=== PATIENT | male | born 1960 | race Two or more races ===

== ENCOUNTER 2022-07-11 14:58 | Emergency (ER) | payer MEDICAID ==
[~2022-07-11] VITALS: Ht 167.6 cm; Wt 74.8 kg
--- NOTE | 2022-07-11 15:10 | NUR ---
I feel like my Appendix is about to burst. Bad pain in abdomen.
[2022-07-11] MEDS ORDERED: MORPHINE SULFATE INJ 2 MG/ML DISP.SYRIN ONE (15:48)
[2022-07-11] MEDS ORDERED: ONDANSETRON HCL/PF 4 MG/2 ML VIAL ONE (15:48)
[2022-07-11 15:50] LABS: EOSINOPHILS % (AUTO) 1.5 % (0.0-6.0); MONOCYTES # (AUTO) 0.7 K/uL (0.1-1.30); NEUTROPHILS # (AUTO) 6.3 K/uL (1.8-8.9)
--- NOTE | 2022-07-11 15:55 | NUR ---
IV STARTED ON RIGHT AC 20G
[2022-07-11 15:57] LABS: BASOPHILS % (AUTO) 0.4 % (0.0-2.0); HEMATOCRIT 56 % (39-51); HEMOGLOBIN 17.7 g/dL (13.5-17.5); LYMPHOCYTES # (AUTO) 1.5 K/uL (0.8-4.8); LYMPHOCYTES % (AUTO) 17.1 % (20.0-44.0); MEAN CORPUSCULAR HGB CONC 32 g/dl (31.0-36.0); MEAN CORPUSCULAR VOLUME 85 fL (80-96); MONOCYTES % (AUTO) 8.6 % (2.0-12.0); NEUTROPHILS % (AUTO) 72.4 % (43.0-81.0); PLATELET COUNT (AUTO) 244 K/uL (150-450); RED BLOOD CELL COUNT(AUTO) 6.57 MIL/uL (4.5-6.0); WHITE BLOOD COUNT (AUTO) 8.7 K/uL (4.3-11.0)
--- NOTE | 2022-07-11 15:57 | NUR ---
PATIENT REFUSED MORPHINE.
[2022-07-11] MEDS ORDERED: PIPERACILLIN /TAZOBACTAM 3.375 G in IV D5W 50 ML IV ONE (16:00)
[2022-07-11] MEDS ORDERED: ONDANSETRON HCL/PF - ER 4 MG/2 ML VIAL IV ONE (16:00)
[2022-07-11] MEDS ORDERED: IV LR 1000 ML 1,000 ML BAG IV ONE (16:00)
[2022-07-11] MEDS ORDERED: MORPHINE SULFATE INJ 2 MG/ML DISP.SYRIN IV ONE (16:00)
--- NOTE | 2022-07-11 16:01 | NUR ---
LR ADMINISTERED 1601 IV STOP TIME 1801
[2022-07-11 17:51] LABS: CALCIUM, SERUM 9.3 mg/dL (8.5-10.1); POTASSIUM 4.6 mmol/L (3.5-5.1)
[2022-07-11 17:52] LABS: ALBUMIN 3.5 g/dL (3.4-5.0); BILIRUBIN,TOTAL 1.6 mg/dL (0.2-1.0); CREATININE 1.4 mg/dL (0.6-1.3); TOTAL PROTEIN, SERUM 7.4 g/dL (6.4-8.2)
[2022-07-11] MEDS ORDERED: IV NS 0.9% 250 ML IV ONE (18:02)
[2022-07-11] MEDS ORDERED: CT SWABBABLE VALVE TRANS SET 1 EA INFUS.SET MC ONE (18:02)
[2022-07-11] MEDS ORDERED: IOHEXOL-300 100 ML VIAL IV ONE (18:02)
[2022-07-11 18:54] LABS: BILIRUBIN,DIRECT 0.4 mg/dL (0.0-0.2)
[2022-07-11 19:36] LABS: BILIRUBIN,URINE NEGATIVE (NEGATIVE); COLOR,URINE YELLOW (YELLOW); LEUKOCYTE ESTERASE ,URINE NEGATIVE (NEGATIVE); NITRITE, URINE NEGATIVE (NEGATIVE); PH,URINE 5.5 (5.0-8.0); PROTEIN,URINE 1+ mg/dl (NEGATIVE); UGLUCOSE NEGATIVE (NEGATIVE); UROBILINOGEN,URINE 0.2 EU/dL (0.2)
[2022-07-11] MEDS ORDERED: ONDA4TAB11 PO (20:09)
[2022-07-11] MEDS ORDERED: AMOX-430 PO (20:09)
[2022-07-11] MEDS ORDERED: AMOX/CLAVULANATE 875 MG TABLET ONE (20:16)
[2022-07-11 20:25] VITALS: BP 142/75
--- NOTE | 2022-07-11 20:25 | NUR ---
Patient discharged to home in stable condition. Written and verbal after care instructions given. Patient verbalizes understanding of instruction.IV removed. Catheter intact and site benign. Pressure and 4x4 applied to site. No bleeding noted.
[2022-07-11] MEDS ORDERED: AMOX/CLAVULANATE 875 MG TABLET PO ONE (20:30)
[2022-07-11 20:35] LABS: BACTERIA,URINE None seen /HPF (None Seen); MUCUS,URINE Few /LPF (None Seen); RBC,URINE 0-2 /HPF (0-2); SQUAMOUS EPITHELIAL CELL,UR None Seen /HPF (None Seen); WBC,URINE 0-2 /HPF (0-3)
--- NOTE | 2022-07-11 20:44 | NUR ---
LACTIC 2.5 REPORTED BY LAB AFTER DISCHARGE. DR. AHN NOTIFIED.
== END 2022-07-11 20:45 | disposition home or self-care (01) ==
LOC: ER 15:06
DX: K52.9 Noninfective gastroenteritis and colitis, unspecified (principal); R10.31 Right lower quadrant pain; Z60.2 Problems related to living alone; Z79.899 Other long term (current) drug therapy
CPT/HCPCS: 99285; 74177; 96374; 96375; 85025; 80048; 87040 ×2; 83605; 83690; 80076; 81001; 36415; J2405 ×2; J2543; J7060; J7120 ×2; J7050; Q9967; J2270

== ENCOUNTER 2022-07-25 13:50 | Inpatient (IN) | payer MEDICAID ==
[~2022-07-25] VITALS: Ht 175.3 cm; Wt 81.2 kg
[~2022-07-25 13:50] MED LIST: AMOX-430 PO; ONDA4TAB11 PO
--- NOTE | 2022-07-25 14:05 | NUR ---
WORSENING SOB, BLE EDEMA WORST X 2 DAYS.
--- NOTE | 2022-07-25 15:00 | NUR ---
IV LINE RIGHT AC 20
--- NOTE | 2022-07-25 15:14 | NUR ---
BLOOD SAMPLE TAKEN SENT TO LAB
[2022-07-25 15:24] LABS: BASOPHILS # (AUTO) 0.1 K/uL (0.0-0.2); BASOPHILS % (AUTO) 0.8 % (0.0-2.0); EOSINOPHILS % (AUTO) 1.2 % (0.0-6.0); HEMATOCRIT 57 % (39-51); HEMOGLOBIN 17.8 g/dL (13.5-17.5); LYMPHOCYTES % (AUTO) 13.3 % (20.0-44.0); MEAN CORPUSCULAR HGB CONC 32 g/dl (31.0-36.0); MEAN CORPUSCULAR VOLUME 84 fL (80-96); MONOCYTES # (AUTO) 0.7 K/uL (0.1-1.30); MONOCYTES % (AUTO) 8.7 % (2.0-12.0); NEUTROPHILS # (AUTO) 5.9 K/uL (1.8-8.9); PLATELET COUNT (AUTO) 187 K/uL (150-450); RED BLOOD CELL COUNT(AUTO) 6.72 MIL/uL (4.5-6.0); WHITE BLOOD COUNT (AUTO) 7.7 K/uL (4.3-11.0)
--- NOTE | 2022-07-25 15:42 | NUR ---
PATIENT REFUSED TO HAVE HIS PULSE OX SENSOR ON. EXPLAINED THE BENEFITS OF HAVING IT ON SPCIALLY HE IS HAVING SHORTNESS OF BREATH BUT PT. STILL REFUSED. MADE AWARE
[2022-07-25 15:51] LABS: ALANINE AMINOTRANSFERASE 296 U/L (12-78); ALBUMIN 3.3 g/dL (3.4-5.0); ALKALINE PHOSPHATASE 104 U/L (46-116); ASPARTATE AMINOTRANSFERASE 53 U/L (15-37); BILIRUBIN,DIRECT 0.5 mg/dL (0.0-0.2); BILIRUBIN,TOTAL 1.4 mg/dL (0.2-1.0); CALCIUM, SERUM 9.3 mg/dL (8.5-10.1); CARBON DIOXIDE 24 mmol/L (21-32); CHLORIDE 100 mmol/L (98-107); CREATININE 1.6 mg/dL (0.6-1.3); GLUCOSE 102 mg/dL (74-106); POTASSIUM 5.2 mmol/L (3.5-5.1); SODIUM SERUM 134 mmol/L (136-145); TOTAL PROTEIN, SERUM 7.5 g/dL (6.4-8.2); UREA NITROGEN, BLOOD 20 mg/dL (7-18)
--- NOTE | 2022-07-25 15:57 | NUR ---
COVID SWAB TAKEN SENT TO LAB
[2022-07-25] MEDS ORDERED: FUROSEMIDE 20 MG/2 ML VIAL IV ONE (16:30)
[2022-07-25] MEDS ORDERED: FUROSEMIDE 20 MG/2 ML VIAL ONE (16:31)
[2022-07-25 17:43] LABS: BAND % (MANUAL) 1 % (0.0-5.0); LYMPHOCYTES % (MANUAL) 18 % (16-48); MONOCYTES % (MANUAL) 7 % (0-11.0); NEUTROPHILS % (MANUAL) 74 (42-76)
--- NOTE | 2022-07-25 18:51 | NUR ---
GOT BED 321-2 AFTER CHANGE OF SHIFT. ADMITTING INFORMED.
--- NOTE | 2022-07-25 20:30 | NUR ---
WINE AND SPIRITS CLERK NOTE PATIENT ARRIVED TO UNIT VIA CLAY FISCHER. A/OX4. NO S/S OF DISTRESS, BREATHING WITHOUT DIFFICULTY ON ROOM AIR. RAC #20 INTACT AND PATENT. VS STABLE AND WNL. PATIENT ORIENTED TO THE UNIT. PATIENT GIVEN CALL BOWDEN AND INSTRUCTED ON ITS USE. TELE MONITOR APPLIED TO PATIENT, AND EDUCATED ON ITS ROLE IN TREATMENT. PATIENT'S BELONGINGS ACCOUNTED FOR, LOGGED INTO SHEET, AND PLACED IN CHART. SAFETY MEASURES IN PLACE: BED LOCKED AND AT LOWEST POSITION, RAILS UP X2, CALL BOWDEN WITHIN REACH. WILL CONTINUE TO MONITOR PATIENT.
[2022-07-25] MEDS ORDERED: Z GUARD REMEDY 4 OZ OINT TP PRN (21:00)
[2022-07-25] MEDS ORDERED: MAG HYDROX/AL HYDROX/SIMETH 30 ML UDC PO PRN (21:00)
[2022-07-25] MEDS ORDERED: MORPHINE SULFATE INJ 2 MG/ML DISP.SYRIN IV PRN (21:00)
[2022-07-25] MEDS ORDERED: SENNOSIDES 8.6 MG TABLET PO PRN (21:00)
[2022-07-25] MEDS ORDERED: MAGNESIUM HYDROXIDE 30 ML UDC PO PRN (21:00)
[2022-07-25] MEDS ORDERED: ACETAMINOPHEN 325 MG TABLET PO PRN (21:00)
[2022-07-25] MEDS ORDERED: HYDROCODONE/APAP 5/325MG TABLET PO PRN (21:00)
--- NOTE | 2022-07-25 21:11 | NUR ---
RNJAMES STATED THAT PT JUST GOT ADMITTED AND IS IRRITATED. PT WISHES TO REST. RN ASKED FOR EXAM TO BE DONE COMBUSTION ENGINEER. PT WILL BE NPO.
[2022-07-25] MEDS: ZOLPIDEM TARTRATE 5 MG TABLET PO PRN (21:51)
[2022-07-25 22:26] VITALS: BP 102/80; TEMP 98.7
[2022-07-26] VITALS: BP 134/96; TEMP 97.6
[2022-07-26 04:00] VITALS: BP 142/85; TEMP 97.6
[2022-07-26 06:06] LABS: CALCIUM, SERUM 9.4 mg/dL (8.5-10.1); CREATININE 1.7 mg/dL (0.6-1.3); MAGNESIUM 2.2 mg/dL (1.8-2.4)
[2022-07-26 06:21] LABS: THYROID STIMULATING HORMONE 11.907 uIU/mL (0.358-3.74)
--- NOTE | 2022-07-26 06:21 | NUR ---
RN CLOSING NOTE PATIENT ASLEEP IN BED. A/OX4. NO S/S OF DISTRESS, BREATHING WITHOUT DIFFICULTY ON ROOM AIR. LAC #20 SL INTACT AND PATENT. SAFETY MEASURES IN PLACE: BED LOCKED AND AT LOWEST POSITION, RAILS UP X2, CALL BOWDEN WITHIN REACH. WILL ENDORSE TO NEXT SHIFT FOR RUSLAN. Addendum: 07/26/22 at 0624 by JAMES TRAN RN [place] [id number]
[2022-07-26 06:25] LABS: BASOPHILS % (AUTO) 0.6 % (0.0-2.0); EOSINOPHILS % (AUTO) 0.7 % (0.0-6.0); HEMATOCRIT 59 % (39-51); HEMOGLOBIN 18.6 g/dL (13.5-17.5); LYMPHOCYTES # (AUTO) 1.2 K/uL (0.8-4.8); MEAN CORPUSCULAR HGB CONC 31 g/dl (31.0-36.0); MEAN CORPUSCULAR VOLUME 84 fL (80-96); MONOCYTES # (AUTO) 0.6 K/uL (0.1-1.30); MONOCYTES % (AUTO) 8.5 % (2.0-12.0); NEUTROPHILS # (AUTO) 5.1 K/uL (1.8-8.9); NEUTROPHILS % (AUTO) 73.2 % (43.0-81.0); PLATELET COUNT (AUTO) 178 K/uL (150-450); RED BLOOD CELL COUNT(AUTO) 7.04 MIL/uL (4.5-6.0); WHITE BLOOD COUNT (AUTO) 6.9 K/uL (4.3-11.0)
--- NOTE | 2022-07-26 07:00 | NUR ---
RN OPENING NOTE RECEIVED PATIENT AWAKE. A/OX4. NO S/S OF DISTRESS, BREATHING WITHOUT DIFFICULTY ON ROOM AIR. LAC #20 SL INTACT AND PATENT. PATIENT ASKED FOR FOOD, HOWEVER WITH NPO STATUS PER ENDORSED BY FORMULA WEIGHER NURSE, SAFETY MEASURES IN PLACE: BED LOCKED AND AT LOWEST POSITION, RAILS UP X2, CALL BOWDEN WITHIN REACH. WILL CONTINUE TO MONITOR
[2022-07-26 08:14] VITALS: BP 153/110; TEMP 97.9
[2022-07-26] MEDS: FUROSEMIDE 40 MG/4 ML VIAL IV SCH (08:58)
[2022-07-26] MEDS: ASPIRIN 81 MG TAB.CHEW PO SCH (08:58)
[2022-07-26] MEDS: DOCUSATE SODIUM LIQ 100 MG/10 ML UDC NG SCH (08:58)
[2022-07-26] MEDS: PANTOPRAZOLE 40 MG TABLET.DR PO SCH (08:59)
--- NOTE | 2022-07-26 09:06 | NUR ---
WOUND CARE CONSULT: PT PRESENTS WITH COOL AND SWOLLEN LOWER LEGS WITH PURPLISH DISCOLORATION TO KNEES AND FEET. RN TO DISCUSS WITH PMD. PT IS AMBULATORY AND CONTINENT. WILL SEE PRN.
[2022-07-26] MEDS ORDERED: CLONIDINE HCL 0.1 MG TABLET PO PRN (09:30)
[2022-07-26] MEDS ORDERED: hydrALAZINE HCL IV 20 MG VIAL IV PRN (09:30)
[2022-07-26 10:11] LABS: LYMPHOCYTES % (MANUAL) 18 % (16-48); MONOCYTES % (MANUAL) 8 % (0-11.0); NEUTROPHILS % (MANUAL) 74 (42-76)
--- NOTE | 2022-07-26 14:43 | NUR ---
SW consult was requested for possible homelessness. Patient was to the hospital by a friend due to CHF. Patient presented alert and oriented x4 but agitated. He currently resides is his RV that he ramires in different places. He works as a mancia. 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 DC Plan: Pt would want to return back to his RV.
--- NOTE | 2022-07-26 15:45 | NUR ---
Clean catch urine collected for urinalysis profile. Lab informed for picking tech
[2022-07-26 17:09] LABS: CREATININE, URINE < 13.0 MG/DL (30.0-125.0); URINE SODIUM, RANDOM 82 mmol/l (40-220)
--- NOTE | 2022-07-26 19:30 | NUR ---
CREDIT REVIEW ANALYST OPENING NOTES PATIENT AWAKE IN BED. VISITOR AT BEDSIDE. A/O X 4. ABLE TO MAKE NEEDS KNOWN. PATIENT HAS MOTTLED SKIN. NO S/S OF DISTRESS. ON AND OFF WITH 3L OXYGEN VIA NC, PATIENT ALWAYS REMOVES HIS OXYGEN. IV ACCESS LAC #20 SL INTACT AND PATENT. SAFETY MEASURES IN PLACE WITH BED LOCKED AND AT LOWEST POSITION, SIDE RAILS UP X 2, CALL BOWDEN AND TRAY WITHIN REACH. WILL CONTINUE WITH THE PLAN OF CARE.
--- NOTE | 2022-07-26 19:37 | NUR ---
RN CLOSING NOTE PATIENT AWAKE A/OX4. NO S/S OF DISTRESS, BREATHING WITHOUT DIFFICULTY ON ROOM AIR. LAC #20 SL INTACT AND PATENT. SAFETY MEASURES IN PLACE: BED LOCKED AND AT LOWEST POSITION, RAILS UP X2, CALL BOWDEN WITHIN REACH. WILL ENDORSE TO NEXT SHIFT FOR RUSLAN.
--- NOTE | 2022-07-26 20:10 | NUR ---
RN NOTES RT WAS CALLED STAT BECAUSE SOME PARTS OF PATIENT'S BODY IS CYANOTIC AND COLD (HANDS, LEGS, SOME PARTS OF THE FACE AND EARS). CHECKED THE O2 SATURATION AND IT'S 70'S TO 80'S. GAVE THE PATIENT A SIMPLE MASK TO INCREASE OXYGEN SATURATION LEVEL BUT THE PATIENT REFUSED. PATIENT IS AGITATED AND UNCOOPERATIVE. OXYGEN SAT IMPROVED WITH 7L OXYGEN VIA NC THEN BACK TO 3L. WILL CONTINUE TO MONITOR THE PATIENT.
[2022-07-26] MEDS: ZOLPIDEM TARTRATE 5 MG TABLET PO PRN (20:55)
--- NOTE | 2022-07-26 20:55 | NUR ---
RN NOTES- CHADIEN GIVEN PRN PATIENT REQUESTED FOR CHADIEN FOR SLEEP. V/S TAKEN BEFORE ADMINISTERING THE MEDICATION BP 142/90, RR-18, HR-126 TEMP 98.0. WILL CONTINUE TO MONITOR THE PATIENT.
--- NOTE | 2022-07-26 20:55 | NUR ---
RN NOTES-AMBIEN GIVEN PRN PATIENT REQUESTED AMBIEN FOR SLEEP. V/S TAKEN 142/90 HR-126 RR-18, O2 SAT 96%. NO DISTRESS NOTED.
--- NOTE | 2022-07-26 22:31 | NUR ---
RN NOTES- CALLED RURAL ROUTE CARRIER PATIENT'S HR IS 200'S IN THE TELE MONITOR. O2 SAT WAS AROUND 60'S TO 70'S. PATIENT WAS CYANOTIC AND HAVING SOB. BS LEVEL CHECKED 115. RURAL ROUTE CARRIER CAME AND DR. NOEL. NGUYEN ORDERED EKG STAT. PATIENT RECEIVED ADENOSINE 6MG BY RURAL ROUTE CARRIER. BP LEVEL 158/101 HR 137 POST ADENOSINE ADMINISTRATION. ORDERED FOR TRANSFER.
--- NOTE | 2022-07-26 23:01 | NUR ---
RN NOTES- PATIENT TRANSFERRED TO ICU OVERFLOW 108
[2022-07-26 23:04] LABS: BILIRUBIN,URINE NEGATIVE (NEGATIVE); COLOR,URINE YELLOW (YELLOW); LEUKOCYTE ESTERASE ,URINE 1+ (NEGATIVE); NITRITE, URINE NEGATIVE (NEGATIVE); PROTEIN,URINE 1+ mg/dl (NEGATIVE); UGLUCOSE NEGATIVE (NEGATIVE)
--- NOTE | 2022-07-26 23:17 | NUR ---
RT NOTE RT called to bedside via Rapid Response at [facility] rm 321-2. Stat ekg taken. Pt transferred to [facility] rm 108. Pt placed on bipap on noted settings per WEB OFFSET PRESS FEEDER orders. Alarms are set and audible. Bipap plugged into red outlet. Ambu bag at bedside. ABG to be taken within 1 hr of bipap. Addendum: 07/26/22 at 2321 by YESSICA WATSON RT Amended: Links added.
--- NOTE | 2022-07-26 23:20 | NUR ---
ICU OVERFLOW OPENING NOTES Received pts from [facility] room 321 -2 s/p Rapid response ,Pts is awake alert no sob no distress noted , dog catcher barbara at bedside with order pts to put on bipap settings 15/5 rate 14 fioo2 35% , saturation of 80S unable to get good reading D/t pts skin cold and clammy mottled skin , chest xray abg and ekg (sinus tach), all needs attended TOO,TRIED TO INSERT IV LINE UNABLE TO PTS IS HARDSTICK .REFEERED TO NURSE. will continue to monitor pts .pts still Sinus tach 130 at this time.
[2022-07-26 23:25] LABS: BACTERIA,URINE None seen /HPF (None Seen); SQUAMOUS EPITHELIAL CELL,UR None Seen /HPF (None Seen); WBC,URINE 0-2 /HPF (0-3)
[2022-07-26 23:26] LABS: MUCUS,URINE Few /LPF (None Seen)
[2022-07-26] MEDS: ONDANSETRON HCL/PF 4 MG/2 ML VIAL IVP PRN (23:29)
[2022-07-26] MEDS ORDERED: CEFEPIME 1 GM in IV D5W 50 ML IV SCH (23:30)
[2022-07-26 23:41] LABS: EOSINOPHIL,URINE None Seen
[2022-07-27] VITALS (19 sets, daily range): BP systolic 114–163; BP diastolic 78–119; TEMP 97.1–100.5
[2022-07-27] MEDS ORDERED: CEFEPIME 1 GM in IV D5W 50 ML IV ONE ×2
--- NOTE | 2022-07-27 | NUR ---
ICU NOTES MONTERROSO CATHETER INSERTED ORDERED DRAINING WITH YELLOWISH URINE OUTPUT.
[2022-07-27 00:13] LABS: ABG BASE EXCESS -4.3 mmol/L; ABG PCO2 31.6 mmHg (35.0-45.0); ABG PH 7.397 (7.350-7.450); ABG PO2 500.7 mmHg (75.0-100.0); COHb 0.3 % (0.5-1.5); MetHb 0.9 % (0.0-1.5); O2Hb 98.6 % (94.0-97.0); SITE, ABG Right Radial; VENT MODE, BG ST 15/5 RR14 100%
--- NOTE | 2022-07-27 00:30 | NUR ---
icu overflow notes Abg result 500 PO2 RELAYED TO FEDERAL AGENT ROSANGELA WITH ORDER TO PUT PTS ON NASAL CANNULA AT 4 LITERS REMOVED THE BIPAP , RT AT BEDSIDE , PLACE PTS TO NC AT 4 LITERS AT 80 SATURATION. AND REPEAT ABG AGAIN., AT 0030 HRS FEDERAL AGENT ROSANGELA AT BEDSIDE S/E THE PTS WITH ORDER TO GIVE LASIX 40MGX1 IV MORHINE 2MG IV GIVEN ORDERED.WILL CONTINUE TO MONITOR PTS.
[2022-07-27] MEDS ORDERED: CEFEPIME 1 GM VIAL ONE (00:52)
[2022-07-27] MEDS ORDERED: FUROSEMIDE 40 MG/4 ML VIAL IV ONE (01:00)
[2022-07-27] MEDS ORDERED: ALBUTEROL FS 2.5 MG/3 ML VIAL.NEB NEB PRN (02:00)
--- NOTE | 2022-07-27 02:09 | NUR ---
ICU NOTES PTS RESTLESS AND AGITATION ROSANGELA WITH ORDER ATIVAN 1 MG IV X 1 TIME ORDER NOTED AND CARRIED OUT.
[2022-07-27 02:24] LABS: ABG BASE EXCESS -4.6 mmol/L; ABG PCO2 34.5 mmHg (35.0-45.0); ABG PO2 58.7 mmHg (75.0-100.0); COHb 0.3 % (0.5-1.5); MetHb 0.6 % (0.0-1.5); O2Hb 87.8 % (94.0-97.0); SITE, ABG Right Radial; VENT MODE, BG Room Air
[2022-07-27] MEDS ORDERED: LORAZEPAM INJ 2 MG/ML VIAL IV ONE (02:30)
--- NOTE | 2022-07-27 02:35 | NUR ---
auricular acupuncturist notes MIDLINE ON RIGHT UPPER ARM INSERTED BY LUCY MOORE AND PATENT PTS WAS PUT BACK ON BIPAP15/5 ORDERED.PTS WAS ORDERED ON BILATERAL SOFT WRIST D/T PTS PULLING OUT INVASIVE TUBING. WILL CONTINUE TO MONITOR PTS.
[2022-07-27 06:22] LABS: BASOPHILS % (AUTO) 0.4 % (0.0-2.0); EOSINOPHILS % (AUTO) 0.1 % (0.0-6.0); HEMATOCRIT 53 % (39-51); HEMOGLOBIN 17.3 g/dL (13.5-17.5); LYMPHOCYTES # (AUTO) 1.2 K/uL (0.8-4.8); LYMPHOCYTES % (AUTO) 13.7 % (20.0-44.0); MEAN CORPUSCULAR HGB CONC 33 g/dl (31.0-36.0); MEAN CORPUSCULAR VOLUME 82 fL (80-96); MONOCYTES # (AUTO) 0.7 K/uL (0.1-1.30); MONOCYTES % (AUTO) 7.3 % (2.0-12.0); NEUTROPHILS # (AUTO) 7.1 K/uL (1.8-8.9); NEUTROPHILS % (AUTO) 78.5 % (43.0-81.0); PLATELET COUNT (AUTO) 175 K/uL (150-450); RED BLOOD CELL COUNT(AUTO) 6.44 MIL/uL (4.5-6.0); WHITE BLOOD COUNT (AUTO) 9.1 K/uL (4.3-11.0)
--- NOTE | 2022-07-27 06:35 | NUR ---
0635 LUCY Gleason updated on patient latest vital signs as follows: bp 147/98, HR 112 sinus, RR 22, O2 sat 97% on BIPAP with ordered settings. Patient asleep at this time arousable to touch, in no apparent distress. Being closely monitored. Kept clean and comfortable at all times and needs attended.
[2022-07-27 06:38] LABS: CREATININE 1.8 mg/dL (0.6-1.3); MAGNESIUM 1.9 mg/dL (1.8-2.4); PHOSPHORUS 4.7 mg/dL (2.5-4.9); POTASSIUM 4.2 mmol/L (3.5-5.1)
[2022-07-27] MEDS: PANTOPRAZOLE 40 MG TABLET.DR PO SCH (07:30)
--- NOTE | 2022-07-27 07:30 | NUR ---
ICU OVERFLOW RN NOTES RECEIVED PT IN BED, ASLEEP, OPENS EYE TO TOUCH AND NAME, CONFUSED AND LETHARGIC, ON BIPAP 15/5 FIO2 35%, STERNAL RUB, RESPIRATION UNLABORED, ST HR 124 ON MONITOR, NO SIGNS OF CHEST DISCOMFORT OR PAIN, IV ACCESS TO SRIRAM G20 FLUSHES WELL, BERTHA MIDLINE G18 FLUSHES WELL, CDI DRESSING ON BOTH AND SITE CLEAR. ON BILATERAL RESTRAINTS, RELEASED AND CHECKED FOR CIRCULATION THEN EVERY 2 HOURS, SKIN INTACT, MOTTLED ON BLE, MONTERROSO CATH IN PLACE, 450 ML OUTPUT. NPO FOR NOW. WILL TURN AND REPOSITION Q [address]RS[address] SAFETY MEASURES IN PLACE, HOB UP, SR UP X 2, BED LOW LOCKED, CALL LIGHT WITHIN REACH, WILL CONT TO MONITOR.
--- NOTE | 2022-07-27 07:42 | NUR ---
RN NOTES PATIENT TRANSFERRED TO ICU 260. REPORT GIVEN TO ALEXIS HEATH FOR RUSLAN.
--- NOTE | 2022-07-27 07:45 | NUR ---
RN NOTE PT RECEIVED FROM [facility]. REPORT RECEIVED FROM IVANA LYNN. PT IS ON 4L NC TOLERATING WELL WITH NO SIGNS OF DISTRESS OR LABORED BREATHING O2 SAT 100%. PT IS CONFUSED AT THIS TIME AND ON BILATERAL SOFT WRIST RESTRAINTS. PT IS ST 100 - 120'S. FC IS IN PLACE DRAINING URINE TO GRAVITY. PT IS NPO AT THIS TIME DUE TO EPISODES OF EMESIS DURING PARTY PLAN SALES UNIT ADVISOR. IV ACCESS R UA ML AND L AC 20G WITH NO FLUIDS INFUSING AT THIS TIME DUE TO CHF. BED IS LOCKED IN LOWEST POSITION AND ALL HOSPITAL SAFETY MEASURES ARE IN PLACE. WILL CONTINUE TO MONITOR THIS SHIFT.
[2022-07-27] MEDS: DOCUSATE SODIUM LIQ 100 MG/10 ML UDC NG SCH (08:05)
[2022-07-27] MEDS: ASPIRIN 81 MG TAB.CHEW PO SCH (08:06)
[2022-07-27] MEDS: FUROSEMIDE 40 MG/4 ML VIAL IV SCH (08:26)
[2022-07-27] MEDS: CEFEPIME 2 GM in IV D5W 100 ML IV SCH ×2 (09:29→20:19)
[2022-07-27] MEDS: IV NS 0.9% 250 ML IV PRN (09:36)
--- NOTE | 2022-07-27 19:19 | NUR ---
RN CLOSING NOTE PT IS ON RA TOLERATING WELL O2 SAT 97% NO SIGNS OF DISTRESS OR LABORED BREATHING. PT IS CONFUSED AT THIS TIME AND ON BILATERAL SOFT WRIST RESTRAINTS. PT IS ST 100 - 120'S. FC IS IN PLACE DRAINING URINE TO GRAVITY -3 LITERS. PT IS NO ON CARDIAC LOW FAT DIET. IV ACCESS R UA ML AND L AC 20G WITH NO FLUIDS INFUSING AT THIS TIME DUE TO CHF. BED IS LOCKED IN LOWEST POSITION AND ALL HOSPITAL SAFETY MEASURES ARE IN PLACE. WILL ENDORSE TO TROUSSEAU CONSULTANT FOR RUSLAN.
--- NOTE | 2022-07-27 21:00 | NUR ---
ICU/MECHATRONICS TECHNICIAN PT WAS UP TO BATHROOM, SOME SHORTNESS OF BREATH SEE, PT WAS ON ROOM AIR. WHEN PT GOT TO BED, THEN PLACED ON N/C. PT CONTINUE TO HAVE LOW SATURATION IN THE 70'S, INCREASED O2 TO 5 LITERS. THEN ONCE PT BECAME STABLE, THE RT DECREASED THE OXYGEN DOWN TO 1 LITER N/C. WILL CONTINUE TO MONITOR THIS PT.
[2022-07-28] VITALS (21 sets, daily range): BP systolic 94–151; BP diastolic 61–113; TEMP 96.3–98.5
--- NOTE | 2022-07-28 00:10 | NUR ---
ICU/CONDITIONING YARD SUPERVISOR PT HAS A 2LITER BOTTLE OF COKE AT BEDSIDE. PT IS ON A CARDIAC DIET. TEACHING WAS DONE ABOUT DIET HOWEVER PT IS NONCOMPLIANT. ALSO DID TEACHING ABOUT USING THE CALL LIGHT VS YELLING FOR THE NURSE SINCE OTHER PTS ARE CURRENTLY ASLEEP. CALL LIGHT WITHIN REACH.
--- NOTE | 2022-07-28 01:49 | NUR ---
ICU/INTEGRATED MARKETING SPECIALIST TYLENOL GIVEN FOR PAIN, PT REFUSED NORCO DUE TO PAST HISTORY OF DRUG ABUSE
[2022-07-28] MEDS: ONDANSETRON HCL/PF 4 MG/2 ML VIAL IVP PRN (04:44)
--- NOTE | 2022-07-28 05:01 | NUR ---
ICU/COMPUTER TESTER ZOFRAN GIVEN BY PRODUCTION SPECIALIST NURSE FOR NAUSEA NO VOMITING SEEN. WILL MONITOR THIS PT.
--- NOTE | 2022-07-28 07:30 | NUR ---
RN OPENING NOTE PT IS ON RA TOLERATING WELL O2 SAT 96% NO SIGNS OF DISTRESS OR LABORED BREATHING. PT IS A/OX3 AND ST 100 - 120'S. FC IS IN PLACE DRAINING URINE TO GRAVITY. PT IS ON CARDIAC LOW FAT DIET. IV ACCESS R UA ML AND L AC 20G WITH NO FLUIDS INFUSING AT THIS TIME DUE TO CHF. BED IS LOCKED IN LOWEST POSITION AND ALL HOSPITAL SAFETY MEASURES ARE IN PLACE. WILL CONTINUE TO MONITOR THIS SHIFT.
[2022-07-28] MEDS: PANTOPRAZOLE 40 MG TABLET.DR PO SCH (07:48)
[2022-07-28] MEDS: IV NS 0.9% 250 ML IV PRN ×2 (07:54→21:21)
[2022-07-28] MEDS: CEFEPIME 2 GM in IV D5W 100 ML IV SCH ×2 (08:00→20:49)
[2022-07-28] MEDS: DOCUSATE SODIUM LIQ 100 MG/10 ML UDC NG SCH (08:00)
[2022-07-28] MEDS: ASPIRIN 81 MG TAB.CHEW PO SCH (08:00)
[2022-07-28] MEDS: FUROSEMIDE 40 MG/4 ML VIAL IV SCH (08:01)
[2022-07-28 09:12] LABS: BASOPHILS % (AUTO) 0.5 % (0.0-2.0); EOSINOPHILS % (AUTO) 1.8 % (0.0-6.0); HEMATOCRIT 53 % (39-51); HEMOGLOBIN 16.6 g/dL (13.5-17.5); LYMPHOCYTES # (AUTO) 0.9 K/uL (0.8-4.8); LYMPHOCYTES % (AUTO) 11.4 % (20.0-44.0); MEAN CORPUSCULAR HGB CONC 31 g/dl (31.0-36.0); MEAN CORPUSCULAR VOLUME 84 fL (80-96); MONOCYTES # (AUTO) 0.5 K/uL (0.1-1.30); MONOCYTES % (AUTO) 6.5 % (2.0-12.0); NEUTROPHILS # (AUTO) 6.3 K/uL (1.8-8.9); NEUTROPHILS % (AUTO) 79.8 % (43.0-81.0); PLATELET COUNT (AUTO) 173 K/uL (150-450); RED BLOOD CELL COUNT(AUTO) 6.32 MIL/uL (4.5-6.0); WHITE BLOOD COUNT (AUTO) 7.9 K/uL (4.3-11.0)
[2022-07-28 09:17] LABS: CALCIUM, SERUM 8.3 mg/dL (8.5-10.1); CREATININE 1.7 mg/dL (0.6-1.3); POTASSIUM 3.2 mmol/L (3.5-5.1)
[2022-07-28] MEDS ORDERED: POTASSIUM CHLORIDE 20 MEQ TAB.PRT.SR PO ONE (10:00)
[2022-07-28] MEDS: CARVEDILOL 3.125 MG TABLET PO SCH ×2 (14:42→17:50)
--- NOTE | 2022-07-28 18:40 | NUR ---
RN NOTE TRANSFER: 103 PT TRANSFERRED USING ACLS PROTOCOL WITH 2 RNs. PT TRANSFERRED WITH ALL BELONGINGS AND REPORT GIVEN AT BEDSIDE TO IVANA CORDERO.
--- NOTE | 2022-07-28 18:45 | NUR ---
RN NOTE PATIENT TRANSFERRED FROM ICU. RECEIVED HAND OFF REPORT FROM ALEXIS HEATH. PATIENT IS AAO X4, ON ROOM AIR, ON TELE MONITOR SHOWING ST WITH HR OF 105. IV ACCESS ON L AC #20G S/L AND BERTHA ML S/L. MONTERROSO CATHETER IN PLACE, INTACT AND PATENT DRAINING JULIETTE COLORED URINE. VITAL SIGNS FOLLOWS: TEMP 98.5, RR 20, O2 96, BP 121/79. SAFETY MEASURES IN PLACE: BED LOCKED AND IN LOWEST POSITION, BED ALARM ON, SIDE RAILS UP X3.
[2022-07-28] MEDS ORDERED: TEMAZEPAM 15 MG CAPSULE PO PRN (20:30)
--- NOTE | 2022-07-28 21:30 | NUR ---
RN NOTE PATIENT REQUESTED FOR SLEEP MEDICATION. NOTIFIED ROSANGELA PARKER NP, RESTORIL 15 MG GIVEN. ORDERED AND CARRIED OUT.
[2022-07-29] VITALS: BP 101/69; TEMP 98
[2022-07-29 04:00] VITALS: BP 132/98; TEMP 99
--- NOTE | 2022-07-29 06:26 | NUR ---
CLOSING RN NOTE PATIENT IN BED, AAO X4, ON ROOM AIR, NO SOB/DISTRESS NOTED. ON TELE MONITOR SHOWING ST WITH HR OF 107. IV ACCESS ON BERTHA ML S/L, INTACT AND PATENT. MONTERROSO CATHETER IN PLACE, DRAINING JULIETTE COLORED URINE. ALL DUE MEDS WERE GIVEN AND NEEDS ATTENDED. SAFETY MEASURES MAINTAINED: BED LOCKED AND IN LOWEST POSITION, BED ALARM ON, SIDE RAILS UP X3.
--- NOTE | 2022-07-29 07:30 | NUR ---
PT RECEIVED RESTING COMFORTABLY IN BED. NO S/S OR C/O PAIN OR DISTRESS NOTED. SIDE RAILS UP X2, CALL LIGHT LEFT WITHIN REACH. WILL CONTINUE PLAN OF CARE.
[2022-07-29 08:00] VITALS: BP 127/79; TEMP 98.4
[2022-07-29] MEDS: FUROSEMIDE 40 MG/4 ML VIAL IV SCH (08:36)
[2022-07-29] MEDS: CEFEPIME 2 GM in IV D5W 100 ML IV SCH (08:36)
[2022-07-29 08:37] VITALS: BP 127/79
[2022-07-29] MEDS: ASPIRIN 81 MG TAB.CHEW PO SCH (08:37)
[2022-07-29] MEDS: DOCUSATE SODIUM LIQ 100 MG/10 ML UDC NG SCH (08:37)
[2022-07-29] MEDS: CARVEDILOL 3.125 MG TABLET PO SCH (08:37)
[2022-07-29] MEDS: PANTOPRAZOLE 40 MG TABLET.DR PO SCH (08:37)
[2022-07-29] MEDS ORDERED: LOSA25TA3 PO (09:38)
[2022-07-29] MEDS ORDERED: CARV3.122 PO (09:38)
[2022-07-29] MEDS ORDERED: FURO-144 PO (09:38)
[2022-07-29] MEDS ORDERED: ADENOSINE 6 MG/2 ML VIAL IVP ONE (13:47)
--- NOTE | 2022-07-29 13:49 | NUR ---
DISCHARGE INSTRUCTIONS GIVEN ORDERED. ENCOURAGED TO FOLLOW UP WITH PMD INSTRUCTED. ALL QUESTIONS AND CONCERNS ADDRESSED. PATIENT VERBALIZED UNDERSTANDING. MEDICATION RECONCILIATION FORM COMPLETED AND COPY GIVEN TO PATIENT. IV REMOVED WITH CATHETER INTACT, PRESSURE DRESSING APPLIED. TELEMETRY UNIT RETURNED TO STATION. PATIENT TAKEN TO VEHICLE VIA WHEELCHAIR WITH ALL PERSONAL BELONGINGS ACCOMPANIED BY STAFF. NO DISTRSES NOTED AT TIME OF DEPARTURE.
== END 2022-07-29 13:48 | disposition left against medical advice (07) | DRG 194 ==
LOC: ER 13:55 → TELE 19:33 → TELE-TD 07-26 23:08 → ICUOV 07-27 00:39 → ICU 07-27 07:34 → TELE1 07-28 18:38
PROVIDERS: ADMIT Nurse Practitioner Acute Care; ATTEND Internal Medicine
PROC: 5A09357 Assistance with Respiratory Ventilation, Less than 24 Consecutive Hours, Continuous Positive Airway Pressure (ICD-10-PCS; principal; 2022-07-27)
PROC: 05H533Z Insertion of Infusion Device into Right Subclavian Vein, Percutaneous Approach (ICD-10-PCS; 2022-07-27)
PROC: B546ZZA Ultrasonography of Right Subclavian Vein, Guidance (ICD-10-PCS; 2022-07-27)
DX: I11.0 Hypertensive heart disease with heart failure (principal); N17.0 Acute kidney failure with tubular necrosis; J96.91 Respiratory failure, unspecified with hypoxia; I21.A1 Myocardial infarction type 2; I50.23 Acute on chronic systolic (congestive) heart failure; N18.9 Chronic kidney disease, unspecified; E87.20 Acidosis, unspecified; E87.5 Hyperkalemia; K59.00 Constipation, unspecified; R74.01 Elevation of levels of liver transaminase levels; F10.21 Alcohol dependence, in remission; D75.1 Secondary polycythemia; J98.4 Other disorders of lung; R60.9 Edema, unspecified; I73.00 Raynaud's syndrome without gangrene; Z20.822 Contact with and (suspected) exposure to COVID-19; Z87.891 Personal history of nicotine dependence; E87.1 Hypo-osmolality and hyponatremia; I47.1 Supraventricular tachycardia
CPT/HCPCS: 36415; 36600; 71045-TC; 76700-TC; 76770-TC; 76856-TC; 80048-TC; 80061-TC; 80076-TC; 81001; 82570-TC; 82803-TC; 82962-TC; 83605-TC; 83735-TC; 83880; 84100-TC; 84300-TC; 84439-TC; 84443-TC; 84484-TC; 85025-TC; 87081-TC; 87086-TC; 93307-TC; 93970-TC; 94799-TC; 99082-TC; A4223; C9803; G0378; J0153; J0692; J1940; J2060; J2270; J2405; J7050; J7060